=== PATIENT | male | born 1970 | race Caucasian/White ===

== ENCOUNTER 2021-06-18 14:37 | Emergency (ER) | payer OTHER ==
[~2021-06-18] VITALS: Ht 170.2 cm; Wt 68.0 kg
[2021-06-18 14:40] VITALS: BP 148/88
[2021-06-18] MEDS ORDERED: ACETAMINOPHEN 325MG TABLET PO ONE (17:00)
[2021-06-18] MEDS ORDERED: IBUPROFEN 400MG TABLET PO ONE (18:00)
== END 2021-06-18 18:01 | disposition left against medical advice (07) ==
LOC: ER 14:49
DX: M25.561 Pain in right knee (principal)
CPT/HCPCS: 73564; 99283